=== PATIENT | male | born 1990 | race African-American/Black ===

== ENCOUNTER 2023-03-26 17:41 | Emergency (ER) | payer SELFPAY ==
[~2023-03-26] VITALS: Ht 175.3 cm; Wt 124.7 kg
[2023-03-26 18:12] VITALS: BP 129/74; PULSE 91; RESP 16; TEMP 98.6; O2SAT 99
[2023-03-26 19:59] LABS: APPEARANCE,URINE CLEAR (CLEAR); BILIRUBIN,URINE NEGATIVE (NEGATIVE); BLOOD, URINE NEGATIVE (NEGATIVE); COLOR,URINE YELLOW (YELLOW); LEUKOCYTE ESTERASE ,URINE NEGATIVE (NEGATIVE); NITRITE, URINE NEGATIVE (NEGATIVE); PROTEIN,URINE NEGATIVE (NEGATIVE); UGLUCOSE NEGATIVE (NEGATIVE); UROBILINOGEN,URINE 0.2 EU/dL (0.2 - 1)
[2023-03-26 20:35] VITALS: BP 131/60; PULSE 80; RESP 18; TEMP 98.3; O2SAT 97
== END 2023-03-26 20:34 | disposition home or self-care (01) ==
LOC: MED 17:41
DX: R31.9 Hematuria, unspecified (principal); Z79.899 Other long term (current) drug therapy
CPT/HCPCS: 81003; 87491; 99283